=== PATIENT | male | born 1970 | race Caucasian/White ===

== ENCOUNTER 2022-06-03 14:45 | Emergency (ER) | payer MEDICAID ==
[~2022-06-03] VITALS: Ht 175.3 cm; Wt 117.9 kg
--- NOTE | 2022-06-03 15:02 | NUR ---
DR UMANZOR AT BEDSIDE FOR EVAL
--- NOTE | 2022-06-03 15:48 | NUR ---
TECH AT BEDSIDE FOR DRESSING CHANGE
--- NOTE | 2022-06-03 15:55 | NUR ---
Patient discharged to home in stable condition. Written and verbal after care instructions given. Patient verbalizes understanding of instruction.
[2022-06-03 15:56] VITALS: BP 139/74
== END 2022-06-03 15:57 | disposition home or self-care (01) ==
LOC: ER 14:56
DX: D17.1 Benign lipomatous neoplasm of skin and subcutaneous tissue of trunk (principal); L02.212 Cutaneous abscess of back [any part, except buttock and flank]; Z60.2 Problems related to living alone
CPT/HCPCS: 10060; 99282; A6403; A6407